=== PATIENT | male | born 1980 | race Caucasian/White ===

== ENCOUNTER → 2017-07-31 | Outpatient (CLI) | payer OTHER ==
--- NOTE | 2017-07-31 15:52 | REP ---
MAXILLOFACIAL CT WITHOUT CONTRAST: HISTORY: Chronic sinusitis. Bilateral Zach cells are present. The patient is status post bilateral uncinectomy and partial ethmoidectomy. Minimal mucosal thickening is present in the ethmoid, frontal and left maxillary sinuses. The remaining sinuses are clear. The middle and inferior nasal turbinates are partially paradoxical. There is ron bullosa of the right middle nasal turbinate. There is very minimal deviation of the nasal septum to the left. The cribriform plate, medial mera of the orbits and optic canals are intact. There is aeration of the left anterior clinoid process. The carotid canals form a segment of the posterolateral mera of the sphenoid sinus. IMPRESSION: 1. Postoperative change as described above. 2. Sinus mucosal thickening as described above. Signed by Alvarado Ramos MD 07/31/2017 03:56 P
== END ==
LOC: M RAD 15:10
PROVIDERS: ATTEND Physician Assistant Medical
DX: J32.9 Chronic sinusitis, unspecified (principal)

== ENCOUNTER → 2020-04-22 | Outpatient (CLI) | payer BC | LOC: M LABSMTC 14:26 | PROVIDERS: ATTEND Family Medicine | DX: Z03.818 Encounter for observation for suspected exposure to other biological agents ruled out (principal); Z11.59 Encounter for screening for other viral diseases ==

== ENCOUNTER → 2020-08-01 | Outpatient (CLI) | payer BC ==
[~2020-08-01] MED LIST: METHACHOLINE KIT (J7674) INH ONE
--- NOTE | 2020-08-11 12:15 | PFTRPT ---
Height: 71.00 Inches Weight: 163.00 Lbs BSA: 1.93 Diagnosis: R06.00 DATE OF STUDY: 08/01/2020 QUALITY: Study of excellent technical quality. PROCEDURE: Under protocol, methacholine was administered. At a dose of 2.5 mg or 13.875 CDUs, a 24% decline of the FEV1 was noted. PC of 0.72 is significant. Flow rates did return to baseline post-bronchodilator administration. IMPRESSION: Positive methacholine challenge study. MTDD
== END ==
LOC: M CARPUL 09:54
PROVIDERS: ATTEND Allergy & Immunology
DX: R06.00 Dyspnea, unspecified (principal)
CPT/HCPCS: 94070; J7674